=== PATIENT | female | born 1960 | race American Indian/Alaskan Native ===

== ENCOUNTER → 2019-01-27 | Outpatient (CLI) | payer OTHER | LOC: C.MAMMO 10:57 | DX: Z12.31 Encounter for screening mammogram for malignant neoplasm of breast (principal) ==

== ENCOUNTER 2019-02-20 11:33 | Outpatient (CLI) | payer OTHER | END 2019-02-20 11:34 | disposition home or self-care (01) | LOC: C.MAMMO 11:33 ==

== ENCOUNTER 2019-03-14 11:36 | Outpatient (CLI) | payer OTHER | END 2019-03-14 11:37 | disposition home or self-care (01) | LOC: C.SPRAD 11:36 | DX: N63.0 Unspecified lump in unspecified breast (principal) ==